=== PATIENT | male | born 1995 | race Caucasian/White ===

== ENCOUNTER 2017-06-11 08:46 | Emergency (ER) | payer OTHER ==
[~2017-06-11] VITALS: Ht 167.6 cm; Wt 106.8 kg
[~2017-06-11 08:46] MED LIST: PRLSR20 PO
[2017-06-11 09:01] VITALS: TEMP 36.8; Ht 167.6 cm; Wt 106.8 kg
[2017-06-11] MEDS ORDERED: MoRPHine SULFATE 10 MG/ML CARP/VIAL IV STA (09:11)
[2017-06-11] MEDS ORDERED: ONDANSETRON INJ 2 MG/ML 2 ML VIAL IV STA (09:11)
[2017-06-11] MEDS ORDERED: KETOROLAC TROMETHAMINE 30 MG/ML VIAL IV STA (09:11)
[2017-06-11] MEDS ORDERED: XYLOCAINE 1%/SOD BICARB 20 ML VIAL INFIL ONE ×2 (09:14→09:15)
--- NOTE | 2017-06-11 09:55 | DIAGNOSTIC IMAGING REPORT ---
LEFT HAND 3 VIEWS HISTORY: Left hand laceration. COMPARISON: None. FINDINGS: There is no fracture or dislocation. Soft tissue laceration and swelling between the first and second digits. No radiopaque foreign bodies. IMPRESSION: No fractures. Soft tissue swelling and a laceration between the first and second digits. Electronically signed by: Juan Murphy M.D. 06/11/2017 9:54 AM Dictated Date/Time: 06/11/2017 9:39 AM
[2017-06-11 10:25] LABS: HEMATOCRIT 44.6 % (42-52); MEAN CELL VOLUME 85.3 fL (80-100); MEAN CORPUSCULAR HEMOGLOBIN 29.6 pg (25-34); MEAN CORPUSCULAR HGB CONC 34.8 g/dl (32-36); MEAN PLATELET VOLUME 9.7 fL (7.4-10.4); PLATELET COUNT 256 K/uL (130-400); RED BLOOD COUNT 5.23 M/uL (4.7-6.1); WHITE BLOOD COUNT 9.95 K/uL (4.8-10.8)
[2017-06-11] MEDS ORDERED: HYDROmorphone INJ 1 MG/ML SYR IV STA ×2 (10:49→13:10)
[2017-06-11 10:50] LABS: BUN/CREATININE RATIO 14.5 (10-20); CALCIUM 9.4 mg/dl (8.5-10.1); CREATININE 0.86 mg/dl (0.60-1.40); POTASSIUM 3.8 mmol/L (3.5-5.1)
[2017-06-11] MEDS ORDERED: CEPH500C PO (12:13)
[2017-06-11] MEDS ORDERED: OXYC1TAB3 PO (12:13)
[2017-06-11] MEDS ORDERED: CEFTRIAXONE SOD INJ 1 GM ADDVIAL IV STA (12:28)
[2017-06-11 13:30] VITALS: BP 125/58; PULSE 57; O2SAT 99
--- NOTE | 2017-06-11 14:28 | EMERGENCY ROOM VISIT NOTE ---
History First contact with patient: 09:10 Chief Complaint: LACERATION/CUT (SUT/DERMABOND) Stated Complaint: CUT THUMB W/SAW Nursing Triage Summary: PT HAS LACERATION TO BASE OF THUMB ON LEFT HAND, PT STATES CUT WITH CHAINSAW. PT STATES UNABLE TO MOVE THUMB AT THIS TIME, BLEEDING CONTROLLED AT THIS TIME. History of Present Illness The patient is a 22 year old male who presents to the Emergency Room with complaints of a laceration to his left hand from a chainsaw. The patient reports that he was attempting to limb a prior injury when his chain got pinched. As he was attempting to pull down on the branch to release the saw, the saw fell against his left hand, causing this laceration. The patient is [id number]. The patient reports that his thumb is completely numb, and cannot move it. He rates his discomfort a 10 out of 10. Tetanus immunization is up-to-date according to the patient. Review of Systems 10 system review was performed and was negative except for pertinent positives and negatives as indicated in history of present illness Past Medical/Surgical History Medical Problems: (1) Lyme disease Family History Cancer Diabetes mellitus Heart disease Hypertension Social History Smoking Status: Never Smoker Alcohol Use: occasionally Marital Status: single Housing Status: lives with family Occupation Status: employed Current/Historical Medications Scheduled Cephalexin Monohydrate (Keflex), 500 MG PO QID Scheduled PRN Oxycodone Ir (Roxicodone Ir), 1-2 TAB PO Q4H PRN for Pain Physical Exam Vital Signs Date Time Temp Pulse Resp B/P (MAP) Pulse Ox O2 Delivery O2 Flow Rate FiO2 06/11/17 13:30 57 20 125/58 99 06/11/17 12:18 129/63 06/11/17 10:59 82 16 119/69 95 06/11/17 09:54 20 119/69 95 Room Air 06/11/17 09:01 36.8 69 18 153/76 97 Room Air Physical Exam CONSTITUTIONAL: Healthy and well nourished. Alert and oriented X 3 with positive affect. Patient appears in moderately severe discomfort from pain. HEENT: Normocephalic, atraumatic. Pupils equal, round and reactive. NECK: Full active range of motion without discomfort. RESPIRATORY: Clear to auscultation bilaterally with no wheezing, crackles, rhonchi or stridor. CARDIOVASCULAR: Regular rate and rhythm with no murmurs, rubs or gallops. GASTROINTESTINAL: Bowel sounds present in all quadrants. Soft and nontender to palpation. MUSCULOSKELETAL: Examination shows a mildly macerated laceration 4 cm at the volar base of the thumb. No active bleeding noted. The patient is unable to actively flex his finger. Capillary refill of the thumb tip is less than 2 seconds. He has no tenderness to palpation of the IP joint. INTEGUMENTARY: No rash or other significant dermatologic conditions noted. NEUROLOGIC: Patient has poor sensation of the left thumb tip. Medical Decision & Procedures ER Provider Diagnostic Interpretation: My interpretation of left hand x-rays does not show any obvious fractures, radiopaque foreign bodies or dislocation. Radiologist report is as follows: LEFT HAND 3 VIEWS HISTORY: Left hand laceration. COMPARISON: None. FINDINGS: There is no fracture or dislocation. Soft tissue laceration and swelling between the first and second digits. No radiopaque foreign bodies. IMPRESSION: No fractures. Soft tissue swelling and a laceration between the first and second digits. Laboratory Results 06/11/17 10:04 06/11/17 10:04 Test 06/11/17 10:04 Red Blood Count 5.23 M/uL (4.7-6.1) Mean Corpuscular Volume 85.3 fL (80-100) Mean Corpuscular Hemoglobin 29.6 pg (25-34) Mean Corpuscular Hemoglobin Concent 34.8 g/dl (32-36) RDW Standard Deviation 41.4 fL (36.4-46.3) RDW Coefficient of Variation 13.2 % (11.5-14.5) Mean Platelet Volume 9.7 fL (7.4-10.4) Anion Gap 7.0 mmol/L (3-11) Est Creatinine Clear Calc Drug Dose 155.6 ml/min Estimated GFR () 143.7 Estimated GFR (Non- 124.0 BUN/Creatinine Ratio 14.5 (10-20) Calcium Level 9.4 mg/dl (8.5-10.1) The above labs were reviewed and were normal. Medications Administered Medications (Trade) Dose Ordered Sig/Yefri Route Start Time Stop Time Status Last Admin Dose Admin Morphine Sulfate (MoRPHine SULFATE INJ) 8 mg NOW STAT IV 06/11/17 09:11 06/11/17 09:13 DC 06/11/17 09:23 8 MG Ketorolac Tromethamine (Toradol Inj) 30 mg NOW STAT IV 06/11/17 09:11 06/11/17 09:13 DC 06/11/17 09:23 30 MG Ondansetron HCl (Zofran Inj) 4 mg NOW STAT IV 06/11/17 09:11 06/11/17 09:13 DC 06/11/17 09:22 4 MG Lidocaine HCl (Buffered Lidocaine 1% Inj) 20 ml ONE ONCE INFIL 06/11/17 09:15 06/11/17 09:16 DC 06/11/17 09:53 20 ML Hydromorphone HCl (Dilaudid Inj) 1 mg NOW STAT IV 06/11/17 10:49 06/11/17 10:50 DC 06/11/17 10:55 1 MG Ceftriaxone Sodium (Rocephin Inj) 1 gm NOW STAT IV 06/11/17 12:28 06/11/17 12:29 DC 06/11/17 12:32 1 GM Hydromorphone HCl (Dilaudid Inj) 1 mg NOW STAT IV 06/11/17 13:10 06/11/17 13:11 DC 06/11/17 13:15 1 MG Procedure Wound evaluation was initially performed under local anesthesia after receiving verbal consent from the patient. Using buffered 1% lidocaine without epinephrine, good local anesthesia was administered. Exploration of the wound does show a laceration of the radial flexor tendon at the level of the proximal phalanx. No bony involvement appreciated. There is no active bleeding. There is also no foreign debris is noted within the wound. After orthopedic consultation, I performed [employer] power pulse lavage with 2 L of normal saline. At the request of Dr. Elizalde, a single suture was used to approximate the wound. A bacitracin dressing was applied. ED Course Patient history and physical exam were performed. Nurse's notes were reviewed. Vital signs were reviewed and and were normal. IV access was established, and the patient was administered IV morphine, Toradol and Zofran for pain. X- rays of the left hand were normal. The patient was administered additional IV Dilaudid because of persistent pain. After local anesthesia was administered to the wound, exploration shows a flexor tendon laceration with no other obvious bony involvement. A saline gauze was applied while seeking orthopedic consultation. René Babin PA-C, came to the emergency department for evaluation, and discussed the case further with Dr. Elizalde, [facility] hand surgeon who will see the patient in the office tomorrow morning to schedule outpatient surgery on Friday. Dr. Elizalde requested that I perform pulse lavage irrigation, and closed the wound with a single suture. This was performed. The patient was also administered Rocephin 1 g IV infusion, along with an additional Dilaudid 1 mg IVP prior to discharge. The patient was provided a prescription for Keflex and OxyIR 5 mg. The patient will follow-up tomorrow with Dr. Elizalde. The patient was happy with plan of care, and rated his discomfort a 3 out of 10 at the time of discharge. Medical Decision Impression Primary Impression: Laceration of left hand involving tendon Departure Information Prescriptions Oxycodone Ir (Roxicodone Ir) 5 Mg Tab 1-2 TAB PO Q4H Y for Pain, #24 TAB For Initial Treatment Prov: Gigi Vickers PA 06/11/17 Cephalexin Monohydrate (Keflex) 500 Mg Cap 500 MG PO QID for 7 Days, #28 CAP Prov: Gigi Vickers PA 06/11/17 Referrals No Doctor, Assigned (PCP) Patient Instructions My [facility] Problem Qualifiers Primary Impression: Laceration of left hand involving tendon Encounter type: initial encounter Qualified Codes: S61.412A - Laceration without foreign body of left hand, initial encounter; S66.922A - Laceration of unspecified muscle, fascia and tendon at wrist and hand level, left hand, initial encounter
== END 2017-06-11 13:37 | disposition home or self-care (01) ==
LOC: C.EDB 08:53 → C.EDA 13:37
DX: S61.412A Laceration without foreign body of left hand, initial encounter (principal); S66.121A Laceration of flexor muscle, fascia and tendon of left index finger at wrist and hand level, initial encounter; W29.3XXA Contact with powered garden and outdoor hand tools and machinery, initial encounter; Y93.89 Activity, other specified; Z80.9 Family history of malignant neoplasm, unspecified; Z83.3 Family history of diabetes mellitus; Z82.49 Family history of ischemic heart disease and other diseases of the circulatory system